=== PATIENT | female | born 1945 | race Caucasian/White ===

== ENCOUNTER 2018-02-25 15:50 | Emergency (ER) | payer MEDICARE, MEDICAID ==
[~2018-02-25] VITALS: Ht 162.6 cm; Wt 88.0 kg
[~2018-02-25 15:50] MED LIST: ATRNS; CHLO25CA10 PO; DRON400T2 PO; ENAL10TA PO; HYDR-565 PO; HYDR25TA4 PO; LORA10TA7 PO; MILN50TA PO; MONT10TA24 PO; MUPI22OI30 TP; OMEP20TA5 PO; ONDA8TAB9 PO; ROFL500T7 PO; SERT100T10 PO; TEMA7.5C2 PO; UMEC1DIS
[2018-02-25 16:02] VITALS: BP 145/59
[2018-02-25 16:28] LABS: BASOPHILS % (AUTO) 0.4 % (0-1); EOSINOPHILS # (AUTO) 0.3 X10'3 (0-0.9); EOSINOPHILS % (AUTO) 2.8 % (0-6); HEMATOCRIT 36.2 % (35.0-45.0); HEMOGLOBIN 12.2 g/dl (12.0-16.0); LYMPHOCYTES # (AUTO) 1.8 X10'3 (1.1-4.8); LYMPHOCYTES % (AUTO) 19.9 % (21-51); MEAN CORPUSCULAR HEMOGLOBIN 28.4 PG (27.0-31.0); MEAN CORPUSCULAR HGB CONC 33.8 % (33.0-36.5); MEAN PLATELET VOLUME 8.6 FL (7.4-10.4); MONOCYTES # (AUTO) 0.6 X10'3 (0-0.9); NEUTROPHILS # (AUTO) 6.4 X10'3 (1.8-7.7); NEUTROPHILS % (AUTO) 69.9 % (42-75); PLATELET COUNT 249 X10'3 (140-440); RED BLOOD COUNT 4.32 X10'6 (4.20-5.60); RED CELL DISTRIBUTION WIDTH 14.9 % (11.5-14.5); WHITE BLOOD COUNT 9.1 X10'3 (4.5-11.0)
[2018-02-25 16:40] LABS: INR 0.9 INR; PARTIAL THROMBOPLASTIN TIME 24 SECONDS (22-32); PROTHROMBIN TIME 9.7 SECONDS (9.0-12.0)
[2018-02-25 16:44] LABS: ALANINE AMINOTRANSFERASE 30 U/L (12-78); ALBUMIN 3.8 G/DL (3.4-5.0); ALBUMIN/GLOBULIN RATIO 1.1 (1.1-1.5); ALKALINE PHOSPHATASE 87 IU/L (46-116); ANION GAP 6 (8-16); ASPARTATE AMINO TRANSFERASE 32 U/L (10-37); BILIRUBIN,TOTAL 0.3 MG/DL (0.1-1.0); BLOOD UREA NITROGEN 27 MG/DL (7-18); BUN/CREATININE RATIO 18.6 (6.6-38.0); CALCIUM 9.4 MG/DL (8.5-10.1); CHLORIDE 102 MMOL/L (99-107); CREATININE 1.45 MG/DL (0.40-0.90); GLUCOSE 89 MG/DL (70-104); POTASSIUM 4.1 MMOL/L (3.5-5.1); SODIUM 140 MMOL/L (135-145); TOTAL CARBON DIOXIDE 31.6 MMOL/L (24-32); TOTAL PROTEIN 7.4 G/DL (6.4-8.2); eGFR 36 ML/MIN
== END 2018-02-25 19:18 | disposition home or self-care (01) ==
LOC: ER 15:51
DX: J44.9 Chronic obstructive pulmonary disease, unspecified (principal); I10 Essential (primary) hypertension; Z98.890 Other specified postprocedural states; Z88.2 Allergy status to sulfonamides; Z79.899 Other long term (current) drug therapy; Z99.81 Dependence on supplemental oxygen
CPT/HCPCS: 36415; 71045; 80053; 84484; 85025; 85610; 85730; 93005; 99285

== ENCOUNTER 2018-03-15 16:58 | Inpatient (IN) | payer MEDICARE, MEDICAID ==
[~2018-03-15] VITALS: Ht 160 cm; Wt 89.6 kg
[2018-03-15] MEDS: nitroGLYCERIN 0.4mg SUBLingual tab SL PRN ×3 (17:11→17:32)
[2018-03-15 17:25] LABS: BASOPHILS # (AUTO) 0.1 X10'3 (0-0.2); BASOPHILS % (AUTO) 0.9 % (0-1); EOSINOPHILS # (AUTO) 0.3 X10'3 (0-0.9); EOSINOPHILS % (AUTO) 1.9 % (0-6); HEMATOCRIT 34.4 % (35.0-45.0); HEMOGLOBIN 11.6 g/dl (12.0-16.0); LYMPHOCYTES % (AUTO) 7.5 % (21-51); MEAN CORPUSCULAR HEMOGLOBIN 28.4 PG (27.0-31.0); MEAN CORPUSCULAR HGB CONC 33.7 % (33.0-36.5); MEAN CORPUSCULAR VOLUME 84.5 FL (78-98); MEAN PLATELET VOLUME 8.1 FL (7.4-10.4); MONOCYTES # (AUTO) 0.9 X10'3 (0-0.9); MONOCYTES % (AUTO) 6.4 % (2-12); NEUTROPHILS # (AUTO) 11.6 X10'3 (1.8-7.7); NEUTROPHILS % (AUTO) 83.3 % (42-75); PLATELET COUNT 233 X10'3 (140-440); RED BLOOD COUNT 4.08 X10'6 (4.20-5.60); RED CELL DISTRIBUTION WIDTH 14.3 % (11.5-14.5); WHITE BLOOD COUNT 13.9 X10'3 (4.5-11.0)
[2018-03-15 17:37] LABS: INR 0.9 INR; PARTIAL THROMBOPLASTIN TIME 25 SECONDS (22-32); PROTHROMBIN TIME 9.8 SECONDS (9.0-12.0)
[2018-03-15 17:43] LABS: ALANINE AMINOTRANSFERASE 23 U/L (12-78); ALBUMIN 3.8 G/DL (3.4-5.0); ALBUMIN/GLOBULIN RATIO 1.1 (1.1-1.5); ALKALINE PHOSPHATASE 92 IU/L (46-116); ANION GAP 10 (8-16); ASPARTATE AMINO TRANSFERASE 25 U/L (10-37); BILIRUBIN,TOTAL 0.3 MG/DL (0.1-1.0); BLOOD UREA NITROGEN 26 MG/DL (7-18); CALCIUM 9.5 MG/DL (8.5-10.1); CHLORIDE 102 MMOL/L (99-107); CREATININE 1.37 MG/DL (0.40-0.90); GLUCOSE 94 MG/DL (70-104); POTASSIUM 3.9 MMOL/L (3.5-5.1); SODIUM 139 MMOL/L (135-145); TOTAL CARBON DIOXIDE 27.3 MMOL/L (24-32); TOTAL PROTEIN 7.3 G/DL (6.4-8.2); eGFR 38 ML/MIN
[2018-03-15] MEDS ORDERED: morphine 4 MG/ML inj SYRINge IV ONE (19:40)
[2018-03-15] MEDS ORDERED: ondansetron/PF 4mg/2ml inj IV ONE (19:40)
[2018-03-15] MEDS ORDERED: ASPI-1265 PO (19:42)
[2018-03-15] MEDS ORDERED: DOCU250C4 PO (19:43)
[2018-03-15] MEDS ORDERED: TERB250T4 PO (19:44)
[2018-03-15] MEDS ORDERED: LORA0.5T PO (19:45)
[2018-03-15] MEDS ORDERED: pantoprazole 40mg Tablet.DR PO ONE (20:00)
[2018-03-15] MEDS ORDERED: ondansetron/PF 4mg/2ml inj IV PRN ×2 (20:20)
[2018-03-15] MEDS ORDERED: acetaminophen 325mg tablet PO PRN ×2 (20:20)
[2018-03-15] MEDS ORDERED: morphine 4 MG/ML inj SYRINge IV PRN (20:20)
[2018-03-15] MEDS ORDERED: magnesium hydroxide 30ml (MOM) UD suspension PO PRN ×2 (20:20)
[2018-03-15] MEDS ORDERED: mag hydrox/Alum hydrox/simeth 30ml oral suspension PO PRN ×2 (20:20)
[2018-03-15] MEDS ORDERED: aspirin 81mg tab.chew PO ONE (20:25)
[2018-03-15] MEDS ORDERED: LORazepam 0.5 MG tablet PO PRN (20:25)
[2018-03-15 20:43] LABS: HEMOGLOBIN A1C 6.1 % (4.5-6.2)
[2018-03-15 21:00] VITALS: BP 127/60
[2018-03-15] MEDS ORDERED: dronedarone hcl 400mg tablet PO ONE (22:00)
[2018-03-15] MEDS: montelukast 10mg tablet PO SCH (22:28)
[2018-03-15] MEDS: HYDROcodone/acetaminophen 5mg/325mg tablet PO PRN (22:28)
[2018-03-15] MEDS: sertraline 50mg tablet PO SCH (22:29)
[2018-03-15 23:00] VITALS: BP 123/64
[2018-03-16 03:00] VITALS: BP 114/47
[2018-03-16] MEDS: HYDROcodone/acetaminophen 5mg/325mg tablet PO PRN ×2 (03:06→21:14)
[2018-03-16 05:32] LABS: BASOPHILS % (AUTO) 0.4 % (0-1); EOSINOPHILS # (AUTO) 0.3 X10'3 (0-0.9); HEMATOCRIT 30.9 % (35.0-45.0); HEMOGLOBIN 10.4 g/dl (12.0-16.0); LYMPHOCYTES # (AUTO) 1.8 X10'3 (1.1-4.8); LYMPHOCYTES % (AUTO) 15.4 % (21-51); MEAN CORPUSCULAR HEMOGLOBIN 28.6 PG (27.0-31.0); MEAN CORPUSCULAR HGB CONC 33.8 % (33.0-36.5); MEAN CORPUSCULAR VOLUME 84.7 FL (78-98); MEAN PLATELET VOLUME 8.5 FL (7.4-10.4); MONOCYTES # (AUTO) 0.8 X10'3 (0-0.9); MONOCYTES % (AUTO) 6.7 % (2-12); NEUTROPHILS # (AUTO) 8.6 X10'3 (1.8-7.7); NEUTROPHILS % (AUTO) 74.5 % (42-75); PLATELET COUNT 213 X10'3 (140-440); RED BLOOD COUNT 3.65 X10'6 (4.20-5.60); RED CELL DISTRIBUTION WIDTH 14.4 % (11.5-14.5); WHITE BLOOD COUNT 11.5 X10'3 (4.5-11.0)
[2018-03-16 05:54] LABS: ALANINE AMINOTRANSFERASE 19 U/L (12-78); ALBUMIN 3.3 G/DL (3.4-5.0); ALKALINE PHOSPHATASE 74 IU/L (46-116); ANION GAP 8 (8-16); ASPARTATE AMINO TRANSFERASE 23 U/L (10-37); BILIRUBIN,TOTAL 0.3 MG/DL (0.1-1.0); BLOOD UREA NITROGEN 30 MG/DL (7-18); BUN/CREATININE RATIO 18.4 (6.6-38.0); CALCIUM 8.8 MG/DL (8.5-10.1); CHLORIDE 101 MMOL/L (99-107); CREATININE 1.63 MG/DL (0.40-0.90); GLUCOSE 105 MG/DL (70-104); POTASSIUM 3.9 MMOL/L (3.5-5.1); SODIUM 138 MMOL/L (135-145); TOTAL CARBON DIOXIDE 28.7 MMOL/L (24-32); TOTAL PROTEIN 6.6 G/DL (6.4-8.2); eGFR 31 ML/MIN
[2018-03-16 05:56] LABS: CHOLESTEROL 227 MG/DL (0-200); HDL CHOLESTEROL 45 MG/DL (35-60); LDL CHOLESTEROL 160 MG/DL (50-100); TRIGLYCERIDES 180 MG/DL (20-135)
[2018-03-16 07:00] VITALS: BP 106/44
[2018-03-16] MEDS: aspirin 81mg tab.chew PO SCH (07:46)
[2018-03-16] MEDS: lisinopril 10 MG tablet PO SCH (07:46)
[2018-03-16] MEDS: sertraline 50mg tablet PO SCH ×2 (07:46→20:54)
[2018-03-16] MEDS: terbinafine 250mg tablet PO SCH (07:47)
[2018-03-16] MEDS: MILNACIPRAN HCL 50 MG TABLET PO SCH ×2 (07:48→20:54)
[2018-03-16] MEDS: dronedarone hcl 400mg tablet PO SCH ×2 (07:48→20:54)
[2018-03-16] MEDS: HYDROcodone/acetaminophen 10/325mg tab PO PRN ×2 (07:52→13:20)
[2018-03-16] MEDS: heparin, porcine 5000 units/ml vial SQ SCH ×2 (07:55→20:55)
[2018-03-16] MEDS ORDERED: sertraline 50mg tablet PO SCH (08:00)
[2018-03-16] MEDS ORDERED: sucralfate 1gm/10ml UD suspension PO ONE (08:10)
[2018-03-16] MEDS ORDERED: pantoprazole 40 MG vial IV ONE (08:10)
[2018-03-16] MEDS ORDERED: metoprolol tartrate 1mg/ml inj IV PRN (08:15)
[2018-03-16] MEDS ORDERED: CAFFEINE CITRATE 60 MG/3 ML injection vial IV PRN (08:15)
[2018-03-16] MEDS ORDERED: nitroGLYCERIN 0.4mg SUBLingual tab SL PRN (08:15)
[2018-03-16] MEDS ORDERED: regadenoson 0.4mg/5ml syringe IV PRN (08:15)
[2018-03-16 11:00] VITALS: BP 119/47
[2018-03-16] MEDS: sucralfate 1gm/10ml UD suspension PO SCH ×3 (11:17→20:56)
[2018-03-16] MEDS ORDERED: albuterol 2.5 MG/3 ML nebule NEB PRN (13:40)
[2018-03-16 15:00] VITALS: BP 107/53
[2018-03-16 19:00] VITALS: BP 112/62
[2018-03-16] MEDS: montelukast 10mg tablet PO SCH (20:54)
[2018-03-16] MEDS: pantoprazole 40 MG vial IV SCH (20:55)
[2018-03-16 23:00] VITALS: BP 125/54
[2018-03-17] VITALS (15 sets, daily range): BP systolic 93–146; BP diastolic 42–72
[2018-03-17 05:48] LABS: BASOPHILS % (AUTO) 0.3 % (0-1); EOSINOPHILS # (AUTO) 0.3 X10'3 (0-0.9); EOSINOPHILS % (AUTO) 3.6 % (0-6); HEMOGLOBIN 9.9 g/dl (12.0-16.0); LYMPHOCYTES # (AUTO) 1.5 X10'3 (1.1-4.8); LYMPHOCYTES % (AUTO) 15.6 % (21-51); MEAN CORPUSCULAR HEMOGLOBIN 28.3 PG (27.0-31.0); MEAN CORPUSCULAR HGB CONC 33.1 % (33.0-36.5); MEAN CORPUSCULAR VOLUME 85.4 FL (78-98); MEAN PLATELET VOLUME 8.9 FL (7.4-10.4); MONOCYTES # (AUTO) 0.7 X10'3 (0-0.9); NEUTROPHILS % (AUTO) 73.5 % (42-75); PLATELET COUNT 217 X10'3 (140-440); RED BLOOD COUNT 3.51 X10'6 (4.20-5.60); RED CELL DISTRIBUTION WIDTH 14.2 % (11.5-14.5); WHITE BLOOD COUNT 9.5 X10'3 (4.5-11.0)
[2018-03-17 06:12] LABS: ALANINE AMINOTRANSFERASE 21 U/L (12-78); ALBUMIN 3.2 G/DL (3.4-5.0); ALKALINE PHOSPHATASE 67 IU/L (46-116); ANION GAP 7 (8-16); ASPARTATE AMINO TRANSFERASE 20 U/L (10-37); BILIRUBIN,TOTAL 0.2 MG/DL (0.1-1.0); BLOOD UREA NITROGEN 37 MG/DL (7-18); BUN/CREATININE RATIO 21.1 (6.6-38.0); CALCIUM 8.6 MG/DL (8.5-10.1); CHLORIDE 100 MMOL/L (99-107); CREATININE 1.75 MG/DL (0.40-0.90); GLUCOSE 104 MG/DL (70-104); POTASSIUM 4.2 MMOL/L (3.5-5.1); SODIUM 134 MMOL/L (135-145); TOTAL CARBON DIOXIDE 27.2 MMOL/L (24-32); TOTAL PROTEIN 6.4 G/DL (6.4-8.2); eGFR 29 ML/MIN
[2018-03-17] MEDS: HYDROcodone/acetaminophen 10/325mg tab PO PRN ×2 (07:45→15:52)
[2018-03-17] MEDS: MILNACIPRAN HCL 50 MG TABLET PO SCH ×2 (07:45→20:23)
[2018-03-17] MEDS: aspirin 81mg tab.chew PO SCH (07:45)
[2018-03-17] MEDS: terbinafine 250mg tablet PO SCH (07:45)
[2018-03-17] MEDS: dronedarone hcl 400mg tablet PO SCH ×2 (07:45→20:23)
[2018-03-17] MEDS: pantoprazole 40 MG vial IV SCH (07:46)
[2018-03-17] MEDS: lisinopril 10 MG tablet PO SCH (07:46)
[2018-03-17] MEDS: sertraline 50mg tablet PO SCH ×2 (07:46→19:55)
[2018-03-17] MEDS: sucralfate 1gm/10ml UD suspension PO SCH ×4 (07:46→19:55)
[2018-03-17] MEDS: heparin, porcine 5000 units/ml vial SQ SCH ×2 (07:47→19:56)
[2018-03-17] MEDS ORDERED: CAFFEINE CITRATE 60 MG/3 ML injection vial IV ONE (09:20)
[2018-03-17] MEDS ORDERED: regadenoson 0.4mg/5ml syringe IV ONE (09:20)
[2018-03-17] MEDS ORDERED: ondansetron/PF 4mg/2ml inj ONE (09:33)
[2018-03-17] MEDS ORDERED: fentaNYL/PF 50MCG/1 ML 2ML syringe ONE (10:33)
[2018-03-17] MEDS ORDERED: MIDAZolam 5mg/5ml vial ONE (10:34)
[2018-03-17] MEDS ORDERED: LIDOcaine Viscous 15ml cup ONE (10:34)
[2018-03-17] MEDS ORDERED: ESOM40CA54 PO (12:29)
[2018-03-17] MEDS ORDERED: SUCR1ORA PO (12:29)
[2018-03-17] MEDS ORDERED: METO5TAB98 PO (12:29)
[2018-03-17] MEDS: montelukast 10mg tablet PO SCH (19:55)
[2018-03-17] MEDS ORDERED: pantoprazole 40mg Tablet.DR PO SCH (20:00)
== END 2018-03-17 21:00 | disposition home health service (06) | DRG 392 ==
LOC: ER 16:58 → ED HOLD 20:20 → PCU 3S 21:04
PROVIDERS: ADMIT Internal Medicine; ATTEND Internal Medicine
PROC: 4A02XM4 Measurement of Cardiac Total Activity, External Approach (ICD-10-PCS; principal; 2018-03-17)
PROC: 3E033HZ Introduction of Radioactive Substance into Peripheral Vein, Percutaneous Approach (ICD-10-PCS; 2018-03-17)
PROC: 0DJ08ZZ Inspection of Upper Intestinal Tract, Via Natural or Artificial Opening Endoscopic (ICD-10-PCS; 2018-03-17)
DX: R13.10 Dysphagia, unspecified (principal); J44.9 Chronic obstructive pulmonary disease, unspecified; D64.9 Anemia, unspecified; G89.29 Other chronic pain; I48.0 Paroxysmal atrial fibrillation; M79.7 Fibromyalgia; N18.3 Chronic kidney disease, stage 3 (moderate); T40.605A Adverse effect of unspecified narcotics, initial encounter; I12.9 Hypertensive chronic kidney disease with stage 1 through stage 4 chronic kidney disease, or unspecified chronic kidney disease; K31.84 Gastroparesis; F41.9 Anxiety disorder, unspecified; M19.90 Unspecified osteoarthritis, unspecified site; Z96.643 Presence of artificial hip joint, bilateral; Z88.2 Allergy status to sulfonamides; Z79.82 Long term (current) use of aspirin; Z79.891 Long term (current) use of opiate analgesic; Z79.899 Other long term (current) drug therapy; Z87.891 Personal history of nicotine dependence; Z82.49 Family history of ischemic heart disease and other diseases of the circulatory system; Z83.3 Family history of diabetes mellitus; Y92.89 Other specified places as the place of occurrence of the external cause
CPT/HCPCS: 36415; 71045; 78452; 80053; 80061; 83036; 84484; 85025; 85610; 85730; 87070; 93005; 93017; 94640; 94760; 96374; 96375; 97116; 97161; 97530; 99285; A4620; A9500; C9113; G0500; J1644; J2250; J2270; J2405; J3010; J7030

== ENCOUNTER 2019-04-15 19:42 | Emergency (ER) | payer MEDICARE ==
[~2019-04-15] VITALS: Ht 160 cm; Wt 93.6 kg
[~2019-04-15 19:42] MED LIST changes: +ATOR40TA7 PO; -CHLO25CA10 PO; -DRON400T2 PO; -ENAL10TA PO; +ENAL20TA PO; +FLEC100T2 PO; +FLUT16SP10; +FOLI0.4T14 PO; -HYDR-565 PO; +HYDR12.5 PO; -HYDR25TA4 PO; +IBUP-1984 PO; +LORA0.5T PO; -LORA10TA7 PO; +MELA10TA2 PO; +MELO-102 PO; -MILN50TA PO; +MUPI15CR12; -MUPI22OI30 TP; +NAPR-917 PO; +OMEP20TA23 PO; -OMEP20TA5 PO; -ONDA8TAB9 PO; -ROFL500T7 PO; -SERT100T10 PO; +SPIR25TA5 PO; -TEMA7.5C2 PO; +TERB250T4 PO; -UMEC1DIS; +VENL75TA4 PO
[2019-04-15 20:27] LABS: BASOPHILS # (AUTO) 0.1 X10'3 (0-0.2); BASOPHILS % (AUTO) 0.9 % (0-1); EOSINOPHILS # (AUTO) 0.1 X10'3 (0-0.9); EOSINOPHILS % (AUTO) 0.7 % (0-6); HEMATOCRIT 29.4 % (35.0-45.0); HEMOGLOBIN 9.5 g/dl (12.0-16.0); LYMPHOCYTES # (AUTO) 1.5 X10'3 (1.1-4.8); LYMPHOCYTES % (AUTO) 8.8 % (21-51); MEAN CORPUSCULAR HEMOGLOBIN 26.5 PG (27.0-31.0); MEAN CORPUSCULAR HGB CONC 32.3 g/dL (33.0-36.5); MEAN PLATELET VOLUME 8.1 FL (7.4-10.4); MONOCYTES % (AUTO) 6.1 % (2-12); NEUTROPHILS # (AUTO) 13.8 X10'3 (1.8-7.7); NEUTROPHILS % (AUTO) 83.5 % (42-75); PLATELET COUNT 343 X10'3 (140-440); RED BLOOD COUNT 3.59 X10'6 (4.20-5.60); RED CELL DISTRIBUTION WIDTH 15.2 % (11.5-14.5); WHITE BLOOD COUNT 16.6 X10'3 (4.5-11.0)
[2019-04-15 20:38] LABS: PARTIAL THROMBOPLASTIN TIME 27 SECONDS (22-32)
[2019-04-15 20:40] LABS: ALANINE AMINOTRANSFERASE 70 U/L (12-78); ALBUMIN 2.6 G/DL (3.4-5.0); ALBUMIN/GLOBULIN RATIO 0.6 (1.1-1.5); ALKALINE PHOSPHATASE 91 IU/L (46-116); ANION GAP 7 (8-16); ASPARTATE AMINO TRANSFERASE 46 U/L (10-37); BILIRUBIN,TOTAL 0.2 MG/DL (0.1-1.0); BLOOD UREA NITROGEN 38 MG/DL (7-18); BUN/CREATININE RATIO 24.2 (6.6-38.0); CALCIUM 8.8 MG/DL (8.5-10.1); CHLORIDE 97 MMOL/L (99-107); CREATININE 1.57 MG/DL (0.40-0.90); GLUCOSE 151 MG/DL (70-104); POTASSIUM 3.2 MMOL/L (3.5-5.1); SODIUM 137 MMOL/L (135-145); TOTAL CARBON DIOXIDE 32.7 MMOL/L (24-32); TOTAL PROTEIN 7.1 G/DL (6.4-8.2); eGFR 32 ML/MIN
[2019-04-15 21:17] LABS: CLARITY,URINE SLIGHTLY CLOUDY (Clear); COLOR,URINE YELLOW (Yellow); GLUCOSE, URINE NEGATIVE (Neg); KETONES,URINE NEGATIVE (Neg); LEUKOCYTE ESTERASE ,URINE SMALL (Neg); NITRITES, URINE NEGATIVE (Neg); OCCULT BLOOD,URINE NEGATIVE (Neg); PH,URINE 5.5 (4.8-8.0); PROTEIN,URINE NEGATIVE (Neg)
[2019-04-15 21:23] LABS: UA COLLECTION TYPE CLN CATCH MIDSTREAM
[2019-04-15 21:25] LABS: BACTERIA,URINE 1+ /HPF (Neg); CAL OXALATE CRYSTALS 1+ /HPF (NEGATIVE); MUCUS STRANDS NONE SEEN /LPF (Neg); RBC,URINE NONE SEEN /HPF (0-2); SQUAMOUS EPITHELIAL CELL,UR FEW /LPF (FEW); TRANSITIONAL EPI CELLS,URINE FEW /HPF; WBC,URINE 30-50 /HPF (0-4)
[2019-04-15] MEDS ORDERED: CIPR-230 PO (21:38)
[2019-04-15] MEDS ORDERED: METR-159 PO (21:38)
[2019-04-15] MEDS ORDERED: levoFLOXACIN-Levaquin 750MG/D5 150 ML IV ONE (21:40)
[2019-04-15] MEDS ORDERED: normal saline 1000ML IV soln IVB ONE (21:40)
[2019-04-15] MEDS ORDERED: metroNIDAZOLE-Flagyl 500mg/NS 100 ML IV ONE (21:40)
--- NOTE | 2019-04-15 21:53 | NUR ---
STARTED PTS FIRST ABX AND BOLUS. BROUGHT HER IN A SANDWICH, MILK, WATER, CRACKERS SHE IS HUNGRY.
--- NOTE | 2019-04-15 22:59 | NUR ---
pt was up and went to the bathroom. She is tucked into bed. She is coughing and it sounds productive. She is asking for a breathing treatment. will notify
[2019-04-15] MEDS ORDERED: ipratropium/albuterol 3ml nebule NEB ONE (23:20)
[2019-04-15 23:59] VITALS: BP 110/62
--- NOTE | 2019-04-16 00:45 | NUR ---
MIRIAM CALLED FOR THE PATIENT. SHE IS READY FOR D/C. I GAVE HER A SANITARY PAD AND WIPES SO SHE COULD FRESHEN UP. SHE SAID THAT WHEN SHE WAS COUGHING SHE HAD SOME URINARY INCONTINENCE.
== END 2019-04-16 01:12 | disposition home or self-care (01) ==
LOC: ER 19:42
DX: K57.92 Diverticulitis of intestine, part unspecified, without perforation or abscess without bleeding (principal); N39.0 Urinary tract infection, site not specified; I10 Essential (primary) hypertension; J44.9 Chronic obstructive pulmonary disease, unspecified; K21.9 Gastro-esophageal reflux disease without esophagitis; F41.9 Anxiety disorder, unspecified; Z95.0 Presence of cardiac pacemaker; Z98.890 Other specified postprocedural states; Z87.891 Personal history of nicotine dependence; Z88.2 Allergy status to sulfonamides; Z79.2 Long term (current) use of antibiotics; Z79.899 Other long term (current) drug therapy
CPT/HCPCS: 36415; 71045; 74176; 80053; 81001; 84484; 85025; 85610; 85730; 87088; 93005; 94640; 94760; 96365; 96366; 96368; 99284; J1956; J3490; J7030; 96375